=== PATIENT | female | born 1975 | race Caucasian/White ===

== ENCOUNTER 2016-08-22 17:44 | Emergency (ER) | payer SELFPAY ==
[~2016-08-22] VITALS: Ht 160 cm; Wt 80.0 kg
[~2016-08-22 17:44] MED LIST: AUGMENTIN875TAB PO; BL IBUPROFEN200 MG PO; CEPHALEXIN500 MG PO; DIFLUCAN150 MG PO; DOXYCYCL HYC100 MG PO; NITROFUR MAC100 MG PO; NORCO1 TA1 PO; PHENERGAN12.5 MG/TA PO; TRAMADOL HCL50 MG PO; TRAZODONE50 MG PO; ZOFRAN ODT4 MG PO; ZOLOFT50 MG PO; [UNRECOGNIZED DRUG - OTHER] PO
[2016-08-22] MEDS ORDERED: AUGMENTIN875TAB PO (20:11)
[2016-08-22 20:19] VITALS: BP 121/82
== END 2016-08-22 20:19 | disposition home or self-care (01) | DRG 153 ==
LOC: ED 17:44
DX: H66.93 Otitis media, unspecified, bilateral (principal); F31.9 Bipolar disorder, unspecified; F41.9 Anxiety disorder, unspecified; F17.210 Nicotine dependence, cigarettes, uncomplicated

== ENCOUNTER 2017-08-10 13:58 | Emergency (ER) | payer SELFPAY ==
[~2017-08-10] VITALS: Ht 160 cm; Wt 72.0 kg
[2017-08-10 15:23] LABS: INFLUENZA A NONE DETECTED (NONE DETECT); INFLUENZA B NONE DETECTED (NONE DETECT)
[2017-08-10] MEDS ORDERED: PROVENTIL108 MCG/AC IN (15:27)
[2017-08-10] MEDS ORDERED: ZITHROMAX250 MG PO (15:27)
[2017-08-10 15:29] VITALS: BP 119/63
[2017-08-10] MEDS ORDERED: TESSALON PER100 MG PO (15:36)
== END 2017-08-10 15:37 | disposition home or self-care (01) | DRG 153 ==
LOC: ED 13:58
PROVIDERS: Emergency Medicine
DX: J06.9 Acute upper respiratory infection, unspecified (principal); F17.210 Nicotine dependence, cigarettes, uncomplicated; R09.81 Nasal congestion; R11.10 Vomiting, unspecified; R05 Cough; M79.1 Myalgia